=== PATIENT | female | born 1940 | race Caucasian/White ===

== ENCOUNTER 2020-03-24 17:32 | Emergency (ER) | payer MEDICARE, OTHER ==
[~2020-03-24] VITALS: Ht 172.7 cm; Wt 86.2 kg
--- NOTE | 2020-03-24 17:55 | NUR ---
AAOx3 c/o COUGH, CONGESTION, SORE THROAT. RR is even and unlabored with NAD noted. Skin is warm and dry. Placed on isolation room and mask. Placed on intensive care nurse. Awaiting md for eval.
[2020-03-24] MEDS: IV NS 0.9% 1,000 ML IV ONE (18:00)
--- NOTE | 2020-03-24 18:05 | NUR ---
IV LINE ESTABLISHED ON LEFT HAND G20 IV, BLOOD DRAWN AND SENT TO LAB.
[2020-03-24 18:11] LABS: BASOPHILS % (AUTO) 0.5 % (0.0-2.0); EOSINOPHILS % (AUTO) 0.4 % (0.0-6.0); HEMATOCRIT 37 % (33-45); HEMOGLOBIN 12.5 g/dL (11.5-14.8); LYMPHOCYTES # (AUTO) 0.9 /CMM (0.8-4.8); MEAN CORPUSCULAR HGB CONC 34 g/dl (31.0-36.0); MEAN CORPUSCULAR VOLUME 98 fL (82-100); MONOCYTES # (AUTO) 0.4 /CMM (0.1-1.30); MONOCYTES % (AUTO) 8.5 % (2.0-12.0); NEUTROPHILS # (AUTO) 3.2 /CMM (1.8-8.9); NEUTROPHILS % (AUTO) 70.6 % (43.0-81.0); PLATELET COUNT (AUTO) 116 /CMM (150-450); RED BLOOD CELL COUNT(AUTO) 3.72 MIL/uL (4.0-5.2); WHITE BLOOD COUNT (AUTO) 4.5 K/uL (4.3-11.0)
--- NOTE | 2020-03-24 18:30 | NUR ---
PATIENT AMBULATES TO RESTROOM.
[2020-03-24 18:36] LABS: ALBUMIN 3.1 g/dL (3.4-5.0); CALCIUM, SERUM 8.9 mg/dL (8.5-10.1); CREATININE 1.1 mg/dL (0.6-1.3); TOTAL PROTEIN, SERUM 6.7 g/dL (6.4-8.2)
[2020-03-24 18:38] LABS: POTASSIUM 2.4 mmol/L (3.5-5.1)
[2020-03-24] MEDS: POTASSIUM CL. PREMIX PERIPHER. 50 ML IV SCH (19:00)
[2020-03-24] MEDS: POTASSIUM CHLORIDE 20 MEQ TAB.PRT.SR PO ONE (19:00)
--- NOTE | 2020-03-24 19:01 | NUR ---
COVID SWAB AND INFLUENZA SWAB SENT TO LAB.
[2020-03-24] MEDS ORDERED: POTASSIUM CL. PREMIX PERIPHER. 50 ML ONE (19:09)
[2020-03-24] MEDS ORDERED: POTASSIUM CHLORIDE 20 MEQ TAB.PRT.SR PO ONE (19:10)
--- NOTE | 2020-03-24 20:30 | NUR ---
CALL FROM LAB. RAPID COVID POSITIVE
[2020-03-24 20:35] LABS: C-REACTIVE PROTEIN 4.3 mg/dL (0.0-0.9)
--- NOTE | 2020-03-24 20:45 | NUR ---
Patient discharged to home in stable condition. Written and verbal after care instructions given. Patient verbalizes understanding of instruction.IV removed. Catheter intact and site benign. Pressure and 4x4 applied to site. No bleeding noted.
[2020-03-24 21:12] VITALS: BP 100/63
== END 2020-03-24 20:45 | disposition home or self-care (01) ==
LOC: ER 17:35
DX: U07.1 COVID-19 (principal); E87.6 Hypokalemia; R53.1 Weakness; Z90.710 Acquired absence of both cervix and uterus; Z88.5 Allergy status to narcotic agent; Z88.8 Allergy status to other drugs, medicaments and biological substances; E11.9 Type 2 diabetes mellitus without complications; I25.2 Old myocardial infarction
CPT/HCPCS: 36415; 71045; 80053; 82550; 82728; 83605; 83615; 83880; 84145; 84484; 85025; 85385; 86140; 87040 ×2; 87426; 87804; 93005; 96361; 96365; 99285; J3480; J7030; C9803